=== PATIENT | male | born 1960 | race Two or more races ===

== ENCOUNTER 2017-06-20 22:53 | Inpatient (IN) | payer MEDICAID ==
[~2017-06-20] VITALS: Ht 172.7 cm; Wt 72.6 kg
[2017-06-20 23:30] LABS: Basophils # (auto) 0.1 uL; Eosinophils # (auto) 0 uL; Eosinophils % (auto) 0.2 % (0.0-7.0); Lymphocytes # (auto) 2.4 uL; Lymphocytes % (auto) 29.5 % (10.0-50.0); Monocytes # (auto) 0.5 uL; White Blood Cell 8.2 10^3/uL (4.4-10.8)
[2017-06-20 23:31] LABS: Basophils % (auto) 0.8 % (0.0-2.0); Mean Corpuscular Hemoglobin 28.9 pg (28.0-32.0); Mean Corpuscular Hgb Conc. 32.8 g/dL (32.0-36.0); Mean Corpuscular Volume 88.1 fL (80.0-100.0); Monocytes % (auto) 5.7 % (0.0-12.0); Neutrophils # (auto) 5.2 uL; Neutrophils % (auto) 63.8 % (37.0-80.0); Nucleated Red Blood Cells % 0.4 %; Platelet Count (auto) 275 10^3/uL (140-450); Red Cell Distribution Width 14.7 % (11.8-14.3)
[2017-06-20 23:38] LABS: Hemoglobin 4.9 g/dL (13.5-17.5)
[2017-06-20 23:46] LABS: INR 1.23 (0.9-1.15); Partial Thromboplastin Time 32.1 sec (22.64-33.71); Prothrombin Time 13.4 sec (9.37-12.3)
[2017-06-20 23:50] LABS: Alanine Aminotransferase 43 U/L (16-61); Albumin 1.8 g/dL (3.4-5.0); Anion Gap 10 (5-15); Aspartate Aminotransferase 46 U/L (15-37); BUN/Creatinine Ratio 41.1; Blood Urea Nitrogen 39 mg/dL (7-18); Calcium 7.3 mg/dL (8.5-10.1); Carbon Dioxide 18 mmol/L (21-32); Chloride 113 mmol/L (98-107); GFR African American 105 mL/min; GFR Non-African American 87 mL/min; Glucose 161 mg/dL (74-106); Potassium 4.6 mmol/L (3.5-5.1); Sodium 141 mmol/L (136-145)
[2017-06-20 23:55] LABS: Alkaline Phosphatase 39 U/L (45-117); Bilirubin, Total 0.1 mg/dL (0.2-1.0)
[2017-06-21] VITALS (15 sets, daily range): BP systolic 83–147; BP diastolic 39–84
[2017-06-21 00:04] LABS: Amylase 35 U/L (25-115); Lipase 316 U/L (73-393)
[2017-06-21] MEDS ORDERED: SODIUM CHLORIDE 0.9% 1,000 ML IV ONE (00:15)
[2017-06-21 02:48] LABS: Urine WBC None Seen /hpf (0 - 3)
[2017-06-21 02:58] LABS: Urine Bacteria NONE SEEN /hpf (None Seen); Urine Blood Negative /uL (Negative); Urine Specific Gravity 1.018 (1.001-1.035)
[2017-06-21] MEDS ORDERED: HYDROcodone-ACET 5/325MG TAB PO PRN (05:45)
[2017-06-21] MEDS ORDERED: ACETAMINOPHEN 500 MG TAB PO PRN (05:45)
[2017-06-21] MEDS ORDERED: ONDANSETRON HCL 4 MG/2 ML VIAL IV PRN (05:45)
[2017-06-21] MEDS: SODIUM CHLORIDE 0.9% 1,000 ML IV SCH ×2 (06:34→16:09)
[2017-06-21] MEDS ORDERED: LORazepam 2MG/ML-1ML VIAL IV PRN (07:00)
[2017-06-21] MEDS ORDERED: OCTREOTIDE ACETATE 100 MCG in SODIUM CHL 0.9% 50 ML IV ONE (07:00)
[2017-06-21] MEDS: THIAMINE INJ 100 MG, MULTIPLE VITAMIN 10 ML, FOLIC ACID 1 MG, MAGNESIUM SULF SDV 50% 8 ... IV SCH ×5 (07:57)
[2017-06-21] MEDS: OCTREOTIDE ACETATE 500 MCG in SODIUM CHL 0.9% 99 ML IV SCH ×2 (10:00→17:50)
[2017-06-21] MEDS: PANTOPRAZOLE 40 MG/10 ML VIAL IV SCH ×2 (10:28→22:00)
[2017-06-21] MEDS ORDERED: GOLYTELY 4L KIT PO ONE (12:00)
[2017-06-21 14:03] LABS: Basophils # (auto) 0.1 uL; Eosinophils # (auto) 0 uL; Eosinophils % (auto) 0.1 % (0.0-7.0); Lymphocytes # (auto) 2.9 uL; Monocytes # (auto) 0.6 uL; Neutrophils # (auto) 7.8 uL; White Blood Cell 11.4 10^3/uL (4.4-10.8)
[2017-06-21 14:05] LABS: Basophils % (auto) 0.6 % (0.0-2.0); Hematocrit 25.4 % (41.0-53.0); Hemoglobin 8.3 g/dL (13.5-17.5); Lymphocytes % (auto) 25.1 % (10.0-50.0); Mean Corpuscular Hemoglobin 28.1 pg (28.0-32.0); Mean Corpuscular Hgb Conc. 32.5 g/dL (32.0-36.0); Mean Corpuscular Volume 86.5 fL (80.0-100.0); Monocytes % (auto) 5.5 % (0.0-12.0); Neutrophils % (auto) 68.7 % (37.0-80.0); Platelet Count (auto) 194 10^3/uL (140-450); Red Blood Cells 2.94 10^6/uL (4.5-5.90); Red Cell Distribution Width 15.4 % (11.8-14.3)
[2017-06-21 14:20] LABS: BUN/Creatinine Ratio 54.7; Calcium 6.7 mg/dL (8.5-10.1); Potassium 4.8 mmol/L (3.5-5.1)
[2017-06-21 19:28] LABS: Hematocrit 21.8 % (41.0-53.0); Hemoglobin 7.2 g/dL (13.5-17.5)
[2017-06-22 00:57] LABS: Hematocrit 19.2 % (41.0-53.0)
[2017-06-22 01:00] LABS: INR 1.13 (0.9-1.15); Partial Thromboplastin Time 31.2 sec (22.64-33.71); Prothrombin Time 12.3 sec (9.37-12.3)
[2017-06-22 01:05] LABS: Hemoglobin 6.6 g/dL (13.5-17.5)
[2017-06-22] MEDS: SODIUM CHLORIDE 0.9% 1,000 ML IV SCH ×3 (01:45→21:52)
[2017-06-22 02:07] VITALS: BP 107/66
[2017-06-22 02:22] VITALS: BP 118/67
[2017-06-22] MEDS: OCTREOTIDE ACETATE 500 MCG in SODIUM CHL 0.9% 99 ML IV SCH (03:01)
[2017-06-22 03:04] VITALS: BP 123/79
[2017-06-22 03:33] VITALS: BP 122/81
[2017-06-22 03:47] VITALS: BP 117/85
[2017-06-22 05:01] VITALS: BP 121/49
[2017-06-22] MEDS ORDERED: OCTREOTIDE ACETATE 100 MCG/ML VL ONE (05:17)
[2017-06-22] MEDS ORDERED: OCTREOTIDE ACETATE 500 MCG/ML VL ONE (05:22)
[2017-06-22] MEDS ORDERED: GOLYTELY 4L KIT PO ONE (06:00)
[2017-06-22 06:55] LABS: Hemoglobin 9.7 g/dL (13.5-17.5)
[2017-06-22] MEDS ORDERED: LIDOCAINE VISCOUS 2% 15ML UD ONE (08:16)
[2017-06-22] MEDS ORDERED: SODIUM CHLORIDE LOCK 10 ML ONE (08:16)
[2017-06-22] MEDS ORDERED: diphenhdrAMINE HCL 50 MG/1 ML VL ONE (08:17)
[2017-06-22] MEDS: PANTOPRAZOLE 40 MG/10 ML VIAL IV SCH ×2 (11:10→22:07)
[2017-06-22] MEDS: MIDAZOLAM HCL 5 MG/ML-1ML VIAL ONE ×3 (12:31→12:45)
[2017-06-22] MEDS: fentaNYL CITRATE 100 MCG/2 ML VL ONE ×2 (12:31→12:35)
[2017-06-22] MEDS ORDERED: EPINEPHrine HCL 1 MG/10 ML SYRG ONE (12:42)
[2017-06-22] MEDS: THIAMINE INJ 100 MG, MULTIPLE VITAMIN 10 ML, FOLIC ACID 1 MG, MAGNESIUM SULF SDV 50% 8 ... IV SCH ×5 (13:54)
[2017-06-23 05:59] LABS: Basophils # (auto) 0.1 uL; Basophils % (auto) 1.2 % (0.0-2.0); Eosinophils # (auto) 0.1 uL; Hematocrit 27.8 % (41.0-53.0); Hemoglobin 9.7 g/dL (13.5-17.5); Lymphocytes # (auto) 2.2 uL; Lymphocytes % (auto) 24.8 % (10.0-50.0); Mean Corpuscular Hemoglobin 30.2 pg (28.0-32.0); Mean Corpuscular Hgb Conc. 34.9 g/dL (32.0-36.0); Mean Corpuscular Volume 86.6 fL (80.0-100.0); Monocytes # (auto) 0.6 uL; Monocytes % (auto) 6.6 % (0.0-12.0); Neutrophils % (auto) 66.4 % (37.0-80.0); Nucleated Red Blood Cells % 0.1 %; Platelet Count (auto) 220 10^3/uL (140-450); Red Blood Cells 3.21 10^6/uL (4.5-5.90); Red Cell Distribution Width 14.5 % (11.8-14.3)
[2017-06-23 06:05] LABS: BUN/Creatinine Ratio 15.3; Calcium 7.5 mg/dL (8.5-10.1); Potassium 3.8 mmol/L (3.5-5.1)
[2017-06-23] MEDS: SODIUM CHLORIDE 0.9% 1,000 ML IV SCH (07:52)
[2017-06-23 08:55] VITALS: BP 145/103
== END 2017-06-23 09:00 | disposition left against medical advice (07) | DRG 241 ==
LOC: EDBD 22:53 → ER 23:00 → TELE 23:01
PROVIDERS: ADMIT Nurse Practitioner Family; ATTEND Internal Medicine
PROC: 30233N1 Transfusion of Nonautologous Red Blood Cells into Peripheral Vein, Percutaneous Approach (ICD-10-PCS; principal; 2017-06-21)
PROC: 3E0G8GC Introduction of Other Therapeutic Substance into Upper GI, Via Natural or Artificial Opening Endoscopic (ICD-10-PCS; 2017-06-22)
PROC: 0DB68ZX Excision of Stomach, Via Natural or Artificial Opening Endoscopic, Diagnostic (ICD-10-PCS; 2017-06-22)
PROC: 0W3P8ZZ Control Bleeding in Gastrointestinal Tract, Via Natural or Artificial Opening Endoscopic (ICD-10-PCS; 2017-06-22 12:30)
DX: K25.0 Acute gastric ulcer with hemorrhage (principal); E44.0 Moderate protein-calorie malnutrition; K29.71 Gastritis, unspecified, with bleeding; D50.0 Iron deficiency anemia secondary to blood loss (chronic); F10.10 Alcohol abuse, uncomplicated; K59.00 Constipation, unspecified; Z53.21 Procedure and treatment not carried out due to patient leaving prior to being seen by health care provider; K29.81 Duodenitis with bleeding; K25.4 Chronic or unspecified gastric ulcer with hemorrhage
CPT/HCPCS: 36415; 36430; 43239; 71045; 74176; 80048; 80053; 80320; 81001; 82150; 83690; 83880; 84484; 85014; 85018; 85025; 85610; 85730; 86850; 86900; 86901; 86920; 93005; 94761; 96360; C9113; J2250

== ENCOUNTER 2017-10-28 15:16 | Emergency (ER) | payer MEDICAID, OTHER ==
[~2017-10-28] VITALS: Ht 30.5 cm; Wt 0.5 kg
[2017-10-28] MEDS ORDERED: SODIUM BICARBONATE 8.4% INJ 50ML SYRINGE IV ONE (15:21)
[2017-10-28] MEDS ORDERED: EPINEPHrine HCL 1 MG/10 ML SYRG IV ONE (15:21)
[2017-10-28] MEDS ORDERED: DEXTROSE (50%) 50ML SYRG IV ONE (15:21)
[2017-10-28] MEDS ORDERED: CALCIUM CHLOR(10%) 100MG/ML 10ML SYRINGE IV ONE (15:21)
[2017-10-28] MEDS ORDERED: AMIODARONE HCL (50 MG/ ML) 3 ML VIAL IV ONE (15:21)
[2017-10-28] MEDS ORDERED: D5W 5% 100 ML BAG IV ONE (15:21)
[2017-10-28] MEDS ORDERED: MAGNESIUM SULF 50% 40 MEQ/10 ML VL IV ONE (15:21)
[2017-10-28] MEDS ORDERED: SODIUM BICARBONATE 8.4% INJ 50ML SYRINGE ONE ×4 (15:28→18:12)
[2017-10-28] MEDS ORDERED: EPINEPHrine HCL 1 MG/10 ML SYRG ONE (15:44)
[2017-10-28] MEDS ORDERED: EPINEPHrine HCL INJECTION 4 MG in SODIUM CHL 0.9% 250 ML IV ONE (15:45)
[2017-10-28] MEDS ORDERED: EPINEPHrine HCL INJECTION 4 MG in D5W 5% 250 ML IV ONE (15:45)
[2017-10-28] MEDS ORDERED: NOREPINEPHRINE 8 MG/250ML KIT 250 ML IV ONE (16:00)
[2017-10-28] MEDS ORDERED: NOREPINEPHRINE 8 MG/250ML KIT 250 ML IV SCH (16:15)
[2017-10-28] MEDS ORDERED: SODIUM CHLORIDE 0.9% 2,000 ML IV ONE (16:15)
[2017-10-28 16:20] LABS: Platelet Count (auto) 202 10^3/uL (140-450)
[2017-10-28 16:22] LABS: Hematocrit 26.3 % (41.0-53.0); Hemoglobin 7.4 g/dL (13.5-17.5); Mean Corpuscular Hemoglobin 21.7 pg (28.0-32.0); Mean Corpuscular Hgb Conc. 28.3 g/dL (32.0-36.0); Mean Corpuscular Volume 76.8 fL (80.0-100.0); Red Blood Cells 3.42 10^6/uL (4.5-5.90); White Blood Cell 10.2 10^3/uL (4.4-10.8)
[2017-10-28 16:23] LABS: Red Cell Distribution Width 22.5 % (11.8-14.3)
[2017-10-28 16:25] LABS: Band Neutrophils % (manual) 0; Basophils % (manual) 0 (0.0-2.0); Blast Cells 0; Eosinophils % (manual) 0 (0-7); Metamyelocytes % 0; Myelocytes % 0; Promyelocytes % 0; Reactive Lymphocytes 0
[2017-10-28] MEDS ORDERED: IOHEXOL 350 MG/ML 100ML IJ ONE (16:26)
[2017-10-28] MEDS ORDERED: PIPERACILLIN-TAZOB 3.375GM 100 ML IV ONE (16:30)
[2017-10-28] MEDS ORDERED: CLINDAMYCIN 900MG IV 50 ML IV ONE (16:30)
[2017-10-28 16:33] LABS: Urine Bacteria FEW /hpf (None Seen); Urine Blood Negative /uL (Negative); Urine Specific Gravity 1.008 (1.001-1.035); Urine WBC 1 /hpf (0 - 3)
[2017-10-28 16:40] LABS: Albumin 1.8 g/dL (3.4-5.0); BUN/Creatinine Ratio 8.3; Bilirubin, Total 0.1 mg/dL (0.2-1.0); Calcium 11.1 mg/dL (8.5-10.1); Potassium 5.5 mmol/L (3.5-5.1)
[2017-10-28 16:43] LABS: Alcohol, Urine < 3.0 mg/dL (0-5); Amphetamine Screen, Urine NEGATIVE (NEGATIVE); Barbiturate Scree,Urine NEGATIVE (NEGATIVE); Benzodiazephine Screen, Urine NEGATIVE (NEGATIVE); Cannabinoid Screen, Urine POSITIVE (NEGATIVE); Cocaine Screen, Urine NEGATIVE (NEGATIVE); Opiate Scree,Urine NEGATIVE (NEGATIVE); Phencyclidine Screen, Urine NEGATIVE (NEGATIVE)
[2017-10-28 16:53] VITALS: BP 67/41
[2017-10-28] MEDS ORDERED: SODIUM BICARBONATE 8.4 % INJ 50ML VIAL IV ONE ×7 (16:54→19:00)
[2017-10-28 17:08] LABS: INR 1.5 (0.9-1.15); Prothrombin Time 15.7 sec (9.27-12.13)
[2017-10-28 17:08] LABS: Lactic Acid w/Reflex 31.7 mmol/L (0.4-2.0)
[2017-10-28 17:15] LABS: Partial Thromboplastin Time 155.7 sec (23.78-33.04)
[2017-10-28] MEDS ORDERED: PHENYLEPHRINE INJ 20 MG in D5W 5% 248 ML IV SCH (17:45)
[2017-10-28 18:17] VITALS: BP 69/26
[2017-10-28 18:30] VITALS: BP 67/43
[2017-10-28 19:39] VITALS: BP 78/47
[2017-10-28 19:41] LABS: Lymphocytes % (manual) 78 (10.0-50.0); Monocytes % (manual) 4 (0-12)
== END 2017-10-29 04:47 | disposition expired ==
LOC: EDBD 15:20 → MERGE 15:20 → ER 15:20
DX: I46.9 Cardiac arrest, cause unspecified (principal); J96.00 Acute respiratory failure, unspecified whether with hypoxia or hypercapnia
CPT/HCPCS: 31500; 36415; 36556; 36600; 51702; 71045; 80053; 80307; 81001; 82805; 82962; 83605; 85007; 85027; 85610; 85730; 87040; 92950; 96365; 96366; 96368; 99291; J0171; J0282; J2370; J2543; J3475; J3490; J7030; J7042; Q9967; 93005; 94002; J7060